=== PATIENT | male | born 1995 | race Caucasian/White ===

== ENCOUNTER 2024-03-23 11:53 | Emergency (ER) | payer SELFPAY ==
[2024-03-23 12:00] VITALS: BP 134/89; PULSE 100; RESP 20; TEMP 37.2; O2SAT 96
--- NOTE | 2024-03-23 12:54 | ED.NAVMDI ---
HPI - Nausea/Vomiting/Diarrhea General Chief complaint: Nausea/Vomiting/Diarrhea Stated complaint: nausea/diarrhea Source: patient, RN notes reviewed and old records reviewed Mode of arrival: ambulatory Limitations: no limitations History of Present Illness HPI Narrative: nausea vomiting and diarrhea MD elicited complaint: nausea, vomiting and diarrhea Onset (ago): day(s) (3) Related Data Allergies Allergy/AdvReac Type Severity Reaction Status Date / Time No Known Allergies Allergy Unverified 11/20/13 14:14 Review of Systems Review of Systems: All systems reviewed & are unremarkable except as noted in HPI and below Course Vital Signs Vital signs: Vital Signs Temperature 37.2 C 03/23/24 12:00 Pulse Rate 100 03/23/24 12:00 Respiratory Rate 20 03/23/24 12:00 Blood Pressure 134/89 03/23/24 12:00 Pulse Oximetry 96 03/23/24 12:00 Oxygen Delivery Room Air 03/23/24 12:00 Temperature 37.2 C 03/23/24 12:00 Pulse Rate 100 03/23/24 12:00 Respiratory Rate 20 03/23/24 12:00 Blood Pressure 134/89 03/23/24 12:00 Pulse Oximetry 96 03/23/24 12:00 Oxygen Delivery Room Air 03/23/24 12:00 MDM - Nausea/Vomiting/Diarrhea Lab Data Labs: Lab Results 03/23/24 Range/Units 13:04 POC Influenza A Ag Positive (Negative) POC Influenza B Ag Negative (Negative) POC SARS CoV-2 Ag Negative (Negative) Discharge Plan Discharge Clinical Impression: Influenza A Patient Disposition: Home, Self-Care Condition: Stable Instructions: Antibiotic Form, Ondansetron (By mouth), Influenza (ED) Additional Instructions: Clear liquids for the next 8-10 hours, then advance to a bland diet as tolerated A bland diet can consist of--BRAT diet which is bananas, rice, applesauce, and toast Avoid fried, greasy, fatty, fried foods Avoid caffeine, nicotine, and alcohol Return to your regular diet in the next 3-4 days Medication as directed for nausea and vomiting Sometimes ibuprofen/Aleve can cause increased stomach upset [id number] Imodium if develop diarrhea Follow-up with her PCP if continued problems or uncontrolled pain You tested positive for influenza you must be fever free for 24 hours without use of Tylenol or ibuprofen before you can return to work. On average it is 5 days from start of symptoms may be less or more, I do recommend that you mask on 1st 5 days you are back around others Patient Language: [place] Prescriptions: New ondansetron 4 mg tablet,disintegrating 4 mg PO Q6H PRN (Reason: nausea and vomiting) Qty: 14 0RF Follow-up/Referrals: PHYSICIAN,TEST INSPECTION ENGINEER [Primary Care Provider] - Time of Disposition: 13:16 Quality [place] Coma Scale Eyes: Open Verbal: Oriented and Alert Motor: Follows Commands Migdalia Coma Total Score: 15
--- NOTE | 2024-03-23 13:12 | ED.GENADULT ---
HPI - General Adult General Chief complaint: Nausea/Vomiting/Diarrhea Stated complaint: nausea/diarrhea Time Seen by Provider: 03/23/24 12:40 Source: patient, RN notes reviewed and old records reviewed Mode of arrival: ambulatory Limitations: no limitations History of Present Illness HPI narrative: 28 year old male who presents to [facility] with complaints of nausea and vomiting and diarrhea for the past 3 days with no abdominal pain verbalized. Patient reports that he has some low grade fevers with the highest temp noted 100.4F Patient reports that the last time he had diarrhea was 2 hours ago with the last episode of vomiting was at 0400 today. Patient reports that he has taken some Tylenol for his symptoms with last dose at 0830 today MD complaint: nausea vomiting and diarrhea Onset (ago): day(s) (3) Severity: moderate Treatments prior to arrival: other (Tylenol) Related Data Allergies Allergy/AdvReac Type Severity Reaction Status Date / Time No Known Allergies Allergy Unverified 11/20/13 14:14 Review of Systems Review of Systems: CONSTITUTIONAL: Reports some fever, chills, or sweats. EYES: Denies visual changes, redness, or discharge. ENT: Denies rhinorrhea, congestion, sore throat, or otalgia. CARDIOVASCULAR: Denies chest pain, palpitations, or edema. RESPIRATORY: Denies cough or dyspnea. GASTROINTESTINAL: Denies abdominal pain, positive for nausea, vomiting, or diarrhea. GENITOURINARY: Denies dysuria or hematuria. SKIN: Denies rash or itching. MUSCULOSKELETAL: Denies back pain, joint pain, or myalgia. NEUROLOGIC: Denies headache, numbness, or weakness. PSYCHIATRIC: Denies anxiety or depression. All systems reviewed & are unremarkable except as noted in HPI and below PMFSH Comments At time of signature, agree with nursing past medical, surgical, social and family history. There is no relevant family history pertinent to the presenting complaint Exam Narrative: GENERAL: ill-appearing, well-nourished, and in no acute distress. HEAD: Normocephalic, atraumatic. EYES: PERRLA and EOMI. ENT: Nares clear, no rhinorrhea or epistaxis. Mucous membranes moist. NECK: Supple. no lymphadenopathy CHEST: Clear to auscultation. No respiratory distress.SAO2 96% on room air HEART: Regular rate and rhythm. No murmur heard. Normal peripheral pulses. ABDOMEN: Soft, nontender, nondistended, normal active bowel sounds.positive for nausea vomiting and diarrhea EXTREMITIES: Normal range of motion. No edema. SKIN: Warm, dry, no rash. NEURO: No focal deficits. Alert and oriented x3. Course Course Emergency Course: Patient is aware of diagnosis, understands and agrees to treatment plan.? Anticipatory guidance given.? Patient agrees to follow-up as directed and is aware of reasons to seek care at the emergency department. Portions of this record may have been created with voice recognition software Level of Care: Express Care Visit Vital Signs Vital signs: Vital Signs Temperature 37.2 C 03/23/24 12:00 Pulse Rate 100 03/23/24 12:00 Respiratory Rate 20 03/23/24 12:00 Blood Pressure 134/89 03/23/24 12:00 Pulse Oximetry 96 03/23/24 12:00 Oxygen Delivery Room Air 03/23/24 12:00 Temperature 37.2 C 03/23/24 12:00 Pulse Rate 100 03/23/24 12:00 Respiratory Rate 20 03/23/24 12:00 Blood Pressure 134/89 03/23/24 12:00 Pulse Oximetry 96 03/23/24 12:00 Oxygen Delivery Room Air 03/23/24 12:00 Reviewed Medical Decision Making MDM Narrative Medical decision making narrative: Exam findings and imaging show no acute concerns or changes; patient is non-toxic appearing and is in no distress.? Patient is appropriate for outpatient treatment and follow-up Differential Diagnosis Differential Diagnosis: URI, viral syndrome, nausea vomiting and diarrhea, Influenza COVID Medical Records Medical records reviewed: Yes I reviewed the external patient's medical records. Vital Signs Vital Signs: Vital Signs Temperature 37.2 C 03/23/24 12:00 Pulse Rate 100 03/23/24 12:00 Respiratory Rate 20 03/23/24 12:00 Blood Pressure 134/89 03/23/24 12:00 Pulse Oximetry 96 03/23/24 12:00 Oxygen Delivery Room Air 03/23/24 12:00 Temperature 37.2 C 03/23/24 12:00 Pulse Rate 100 03/23/24 12:00 Respiratory Rate 20 03/23/24 12:00 Blood Pressure 134/89 03/23/24 12:00 Pulse Oximetry 96 03/23/24 12:00 Oxygen Delivery Room Air 03/23/24 12:00 reviewed Lab Data Lab results reviewed: Yes I reviewed the patient's lab results. Lab results narrative: Influenza A positive, Influenza B negative, COVID antigen negative Labs: Lab Results 03/23/24 Range/Units 13:04 POC Influenza A Ag Positive (Negative) POC Influenza B Ag Negative (Negative) POC SARS CoV-2 Ag Negative (Negative) Critical Care Time Critical Care Time Critical Care Time: No Discharge Plan Discharge Clinical Impression: Influenza A Patient Disposition: Home, Self-Care Condition: Stable Instructions: Antibiotic Form, Ondansetron (By mouth), Influenza (ED) Additional Instructions: Clear liquids for the next 8-10 hours, then advance to a bland diet as tolerated A bland diet can consist of--BRAT diet which is bananas, rice, applesauce, and toast Avoid fried, greasy, fatty, fried foods Avoid caffeine, nicotine, and alcohol Return to your regular diet in the next 3-4 days Medication as directed for nausea and vomiting Sometimes ibuprofen/Aleve can cause increased stomach upset [id number] Imodium if develop diarrhea Follow-up with her PCP if continued problems or uncontrolled pain You tested positive for influenza you must be fever free for 24 hours without use of Tylenol or ibuprofen before you can return to work. On average it is 5 days from start of symptoms may be less or more, I do recommend that you mask on 1st 5 days you are back around others Patient Language: [place] Prescriptions: New ondansetron 4 mg tablet,disintegrating 4 mg PO Q6H PRN (Reason: nausea and vomiting) Qty: 14 0RF Follow-up/Referrals: PHYSICIAN,PALLIATIVE CARE COORDINATOR [Primary Care Provider] - Time of Disposition: 13:16 Quality Migd[place] Coma Scale Eyes: Open Verbal: Oriented and Alert Motor: Follows Commands Migdalia Coma Total Score: 15
[2024-03-23 13:17] LABS: EDCOVIDSCREEN Negative (Negative); EDINFLUASCREEN Positive (Negative); EDINFLUBSCREEN Negative (Negative)
== END 2024-03-23 13:24 | disposition home or self-care (01) ==
PROVIDERS: Emergency Provider Registered Nurse
DX: J10.1 Influenza due to other identified influenza virus with other respiratory manifestations (principal); Z20.822 Contact with and (suspected) exposure to COVID-19
CPT/HCPCS: 87426; 87804; 99203; G0463

== ENCOUNTER 2024-06-11 11:47 | Emergency (ER) | payer OTHER, SELFPAY ==
--- NOTE | 2024-06-11 11:49 | PC.NURSE ---
PT LEFT FROM ADMITTING DESK PRIOR TO THIS PLATE CORRECTOR.
== END 2024-06-11 11:49 | disposition left against medical advice (07) ==
PROVIDERS: Emergency Provider Registered Nurse
DX: Z53.21 Procedure and treatment not carried out due to patient leaving prior to being seen by health care provider (principal)
CPT/HCPCS: 99199